=== PATIENT | female | born 2000 | race Caucasian/White ===

== ENCOUNTER 2022-08-26 13:08 | Inpatient (IN) | payer BC, SELFPAY ==
[2022-08-26] VITALS (12 sets, daily range): BP systolic 122–136; BP diastolic 70–96; PULSE 52–89; RESP 12–23; TEMP 36.9–37.2; O2SAT 97–100; BMI 22.6
--- NOTE | ~2022-08-26 | XR_ITS ---
EXAM: XR abdomen NG/feed tube insert DATE: 08/26/2022 17:53 HISTORY: NG tube placement confirmation . COMPARISON: None available. FINDINGS: Clear lung bases. NG tube, tip and side port project over the gastric body. Normal partial ly visualized bowel gas pattern. No organomegaly. No abnormal abdominal calcification. Regional bones and soft tissues normal for age. IMPRESSION: NG tube, in good position. Reviewed, dictated and finalized at location K. IMPRESSION: NG tube, in good position.
--- NOTE | ~2022-08-26 | XR_ITS ---
Supine and upright views of the abdomen Clinical history: Small bowel obstruction COMPARISON: 08/27/2022 Findings: Bowel gas pattern is nonspecific. No evidence for obstruction or free air. No abnormal mass lesion or calcification is seen. Osseous structures are intact. Impression: No significant abnormality is seen. Reviewed, dictated and finalized at [facility]. Impression: No significant abnormality is seen.
--- NOTE | ~2022-08-26 | XR_ITS ---
EXAMINATION: XR abdomen/kub 1V DATE: 08/27/2022 10:16 INDICATION: Small bowel obstruction TECHNIQUE: A supine view of the abdomen on 2 radiographs was obtained. COMPARISON: 08/26/2022 FINDINGS: Nasogastric tube tip in proximal side port in the body of the stomach. Small amount of gas scattered throughout what appears to be primarily colon. No dilated loops of gas-filled bowel. Mild thoracolumb ar dextrocurvature. IMPRESSION: 1. Nasogastric tube in the stomach. No dilated loops of gas-filled bowel to suggest obstruction. Reviewed, dictated and finalized at location B. IMPRESSION: 1. Nasogastric tube in the stomach. No dilated loops of gas-filled bowel to sug gest obstruction.
--- NOTE | ~2022-08-26 | XR_ITS ---
EXAMINATION: XR sm bowel follow through DATE: 08/27/2022 14:44 INDICATION: Small bowel obstruction. TECHNIQUE: Oral contrast was administered, and a time course of radiographs of the abdomen was obtain ed. Fluoroscopy of the small bowel was performed. Fluoroscopy exposure time was 0.1 minutes. The tota l number of images was 7. COMPARISON: CT abdomen and pelvis 08/26/2022 FINDINGS: The nasogastric tube tip is in the stomach. Bowel malrotation is noted. There are multiple dilated lo ops of small bowel. The distal small bowel is decompressed. Transit time from the stomach to proximal colon was approximately 45 minutes. IMPRESSION: 1. Dilated small bowel with prompt passage of contrast to the colon, consistent with partial small araseli wel obstruction. 2. Bowel malrotation. Reviewed, dictated and finalized at location A. IMPRESSION: 1. Dilated small bowel with prompt passage of contrast to the colon, consistent with partial small bowel obstruction. 2. Bowel malrotation.
--- NOTE | ~2022-08-26 | CT_ITS ---
EXAMINATION: CT abdomen pelvis w con DATE: 08/26/2022 16:03 INDICATION: Generalized abdominal pain. Nausea. TECHNIQUE: Computed tomography (CT) of the abdomen and pelvis was performed with 100 mL Omnipaque 350 intravenous contrast. Automated exposure control and iterative reconstruction technique were employe d. The dose-length product was 309.45 mGy-cm. COMPARISON: None. FINDINGS: The visualized portions of the lung bases are clear without pneumonia or pleural effusion. The heart size is normal. No pericardial effusion. The liver, gallbladder, spleen, pancreas, adrenal glands, and kidneys are normal. The colon is decompressed. There are multiple dilated loops of small bowel with transition point in the inferior peritoneum. There are no pathologically enlarged lymph no adelaida. There is physiologic fluid in the pelvis. There is mild lumbar spondylosis. IMPRESSION: 1. Small bowel obstruction. Reviewed, dictated and finalized at location L. IMPRESSION: 1. Small bowel obstruction.
[2022-08-26 15:18] LABS: Appearance Urine Clear (Clear); Bilirubin Urine Negative (Negative); Blood Urine Negative (Negative); Color Urine Yellow (Yellow); Glucose Urine UA Negative (Negative); Ketones Urine 1+ mg/dL (Negative); Leukocyte Esterase Ur Negative LEU/UL (Negative); Nitrate Urine Negative (Negative); Protein Urine Negative (Negative); Specific Grav Ur 1.027 (1.001-1.035); Urobilinogen Urine 0.2 mg/dL (<2.0); pH Urine 6.5 (5.0-9.0)
[2022-08-26 15:35] LABS: Add Urine Microscopic? NO
[2022-08-26 15:47] LABS: Basophils Absolute Auto 0.1 K/mm3 (0.0-0.1); Basophils Percent Auto 0.4 % (0.2-1.2); Eosinophils Percent Auto 0.1 % (0-4.4); Hematocrit 50.3 % (37.0-47.0); Hemoglobin 17.1 g/dL (12.0-15.0); Immature Granulocyte Absolute 0.04 K/mm3 (0.00-0.031); Immature Granulocyte Percent A 0.3 % (0-0.5); Lymphocytes Percent Auto 6.6 % (18.3-44.2); Mean Corpuscular Hemoglobin 29.6 pg (26-34); Mean Corpuscular Volume 87.2 fl (80-100); Monocytes Absolute Auto 0.5 K/mm3 (0.1-0.6); Monocytes Percent Auto 4.5 % (2.6-8.5); Neutrophils Absolute Auto 10.6 K/mm3 (1.3-6.7); Neutrophils Percent Auto 88.1 % (45.5-73.1); Platelet Count Result 217 k/mm3 (150-375); Red Blood Count 5.77 M/mm3 (4.2-5.4); Red Cell Distribution Width 12.5 % (11.5-14.5)
[2022-08-26] MEDS: ONDANSETRON INJ 4 MG/2 ML VIAL IV PUSH ×2 (15:53→21:15)
[2022-08-26] MEDS: FAMOTIDINE 20 MG/2 ML VIAL IV PUSH (15:53)
[2022-08-26 15:57] LABS: Alanine Aminotransferase 22 U/L (6-35); Albumin Level 5.2 g/dL (3.5-5.1); Alkaline Phosphatase 64 U/L (38-126); Anion Gap 12 mmol/L (8-16); Aspartate Amino Transferase 29 U/L (14-36); Blood Urea Nitrogen 11 mg/dL (7-17); Carbon Dioxide 25 mmol/L (22-30); Chloride 102 mmol/L (98-107); Estimated CRCL calculation 100 ml/min; Estimated Glomerular Filt Rate > 60; Glucose 111 mg/dL (65-110); Lipase 113 U/L (23-300); Potassium 3.8 mmol/L (3.4-5.0); Sodium 139 mmol/L (137-145)
[2022-08-26 15:59] LABS: Estimated CRCL calculation 100 ml/min; Estimated Glomerular Filt Rate > 60
--- NOTE | 2022-08-26 16:18 | ED.ABDPAIN ---
HPI - Abdominal Pain General Chief Complaint: Abdominal Pain Stated Complaint: abd pain Time Seen by Provider: 08/26/22 15:03 Source: patient and RN notes reviewed Mode of arrival: ambulatory Limitations: no limitations History of Present Illness HPI narrative: This is a 22 year old female who presents for evaluation of upper abdominal pain with nausea and vomiting. She developed upper abdominal pain since this morning. She described pain that is severe and occurs in waves. She is having trouble thinking because her pain is so severe. She has had 2 episodes of nonbilious emesis. She reports normal bowel movement this morning but she has not had once since. She has not been passing gas. She denies fever or chills. She reports several years ago she had similar pain and she was diagnosed with colitis. She tried taking Tums at onset of her symptoms because she felt like she had reflux but no improvement. She also reports history of intestinal surgery as a child in which her appendix were on the wrong side. She reports her appendix was removed at that time. She Related Data Allergies Allergy/AdvReac Type Severity Reaction Status Date / Time No Known Allergies Allergy Verified 08/26/22 15:49 Review of Systems Constitutional: Constitutional: Denies weakness Cardiovascular: Cardiovascular: Denies syncope, Denies rapid heart rate, Denies irregular heart rhythm, Denies leg edema and Denies dyspnea Respiratory: Respiratory: Denies chest congestion, Denies hemoptysis, Denies excessive phlegm production and Denies dyspnea Gastrointestinal: Gastrointestinal: Reports abdominal pain, Denies hematochezia, Denies diarrhea, Reports nausea and Reports vomiting Genitourinary: Genitourinary: Denies hematuria and Denies dysuria Musculoskeletal: Musculoskeletal: Denies joint swelling, Denies loss of height and Denies muscle weakness Neurologic: Denies syncope, Denies focal weakness and Denies weakness PMFSH Past Medical History Medical History (Updated 08/26/22 @ 17:46 by Jeannine Cassidy MD) Colitis Surgical History Surgical History (Updated 08/26/22 @ 16:36 by Jeannine Cassidy MD) Hx of appendectomy Social History Social History (Updated 08/26/22 @ 16:36 by Jeannine Cassidy MD) Smoking status: Never smoker Exam Const: General: no acute distress and alert Nutritional Appearance: well nourished Orientation/consciousness: patient oriented x3 HENMT: Head: normal to inspection Eyes: EOM: EOMs intact bilaterally Resp: Effort & Inspection: normal respiratory effort Auscultation: clear to auscultation bilaterally Cardio: Rate: regular rate Rhythm: regular rhythm Heart sounds: no murmurs GI: GI Palp: Yes Tenderness to palpation present (GI) (diffuse), Yes Guarding due to palpation present (GI) (voluntary) and No Rigid due to palpation Auscultation: Hypoactive bowel sounds present Skin: General skin exam: normal color Rashes: no rashes Wounds: no wounds Neuro: General: patient oriented x3, moves all extremities and CN's II-XI intact bilaterally Cranial nerves: Yes Nystagmus not present Speech: normal speech Gait exam (Neuro): Normal gait present Extrem: General: normal to inspection Psych: Mental Status: mental status grossly normal Affect: normal affect Attitude: cooperative Course Reevaluation(s) Reevaluation #1: I Discussed with patient that she was found to have SBO on CT and treatment is generally with NGT. She wants to think about having procedure. Date: 08/26/22 Time: 16:37 Consultations Consultation #1: I discussed case with DR. Cali who agrees to admit to service. He agrees with NGT . He states patient can have ice chips. Date: 08/26/22 Time: 17:40 Vital Signs Vital signs: Vital Signs Temperature 98.4 F 08/26/22 13:38 Pulse Rate 78 08/26/22 13:38 Respiratory Rate 16 08/26/22 13:38 Blood Pressure 123/70 08/26/22 13:38 Pulse Oximetry 100 08/26/22 13:38 Oxygen De
[2022-08-26] MEDS: SODIUM CHLORIDE 0.9% IV 1,000 ML 999 ML IV CONT ×2 (16:27→16:28)
--- NOTE | 2022-08-26 16:39 | PC.NURSE ---
patient undecided about NG tube at this time. Provider aware and ok for patient to think about it for a bit and call nurse when she make a decision
[2022-08-26] MEDS: MORPHINE SULFATE (*CRX) 4 MG/ML INJ IV PUSH (17:35)
--- NOTE | 2022-08-26 18:51 | ADMGEN ---
This patient, Ashley Mata, was admitted to Medical Room 245-. Patient/family oriented to hospital policies and general routines including ID bracelet, bed and alarms, visiting hours, pain management, procedures, bathroom and other care routines, personal items, smoking policy, room service/diet, and visiting hours. Information on how to activate the Rapid Response Team has been discussed. Patient/Family are encouraged to report perceived risks to care and to ask questions if they do not understand what they are told or what they should do.
[2022-08-26] MEDS: SODIUM CHLORIDE 0.9% IV 1,000 ML 125 ML IV CONT (20:29)
[2022-08-27] MEDS: ONDANSETRON INJ 4 MG/2 ML VIAL IV PUSH ×2 (01:19→05:40)
[2022-08-27] MEDS: MORPHINE SULFATE (*CRX) 4 MG/ML INJ IV PUSH ×2 (01:20→05:41)
[2022-08-27] MEDS: SODIUM CHLORIDE 0.9% IV 1,000 ML 125 ML IV CONT (04:27)
[2022-08-27 04:36] VITALS: BP 126/78; PULSE 50; RESP 18; TEMP 36.3; O2SAT 100
[2022-08-27 05:32] LABS: Basophils Absolute Auto 0.1 K/mm3 (0.0-0.1); Basophils Percent Auto 0.5 % (0.2-1.2); Eosinophils Percent Auto 0.2 % (0-4.4); Hematocrit 45.5 % (37.0-47.0); Hemoglobin 15.1 g/dL (12.0-15.0); Immature Granulocyte Absolute 0.03 K/mm3 (0.00-0.031); Immature Granulocyte Percent A 0.3 % (0-0.5); Lymphocytes Absolute Auto 1.54 K/mm3 (0.9-3.2); Mean Corpuscular HGB Conc 33.2 g/dl (32-36); Mean Corpuscular Hemoglobin 29.4 pg (26-34); Mean Corpuscular Volume 88.5 fl (80-100); Mean Platelet Volume 10.6 fl (7.4-10.4); Monocytes Absolute Auto 0.9 K/mm3 (0.1-0.6); Monocytes Percent Auto 8.3 % (2.6-8.5); Neutrophils Absolute Auto 7.8 K/mm3 (1.3-6.7); Neutrophils Percent Auto 75.7 % (45.5-73.1); Platelet Count Result 205 k/mm3 (150-375); Red Blood Count 5.14 M/mm3 (4.2-5.4); Red Cell Distribution Width 12.5 % (11.5-14.5); White Blood Count 10.2 K/mm3 (4.5-10.0)
[2022-08-27 05:44] LABS: Alanine Aminotransferase 16 U/L (6-35); Alkaline Phosphatase 50 U/L (38-126); Anion Gap 7 mmol/L (8-16); Aspartate Amino Transferase 23 U/L (14-36); Bilirubin,Total 1.1 mg/dL (0.2-1.3); Blood Urea Nitrogen 7 mg/dL (7-17); Calcium 8.4 mg/dL (8.4-10.2); Carbon Dioxide 25 mmol/L (22-30); Chloride 108 mmol/L (98-107); Estimated CRCL calculation 100 ml/min; Estimated Glomerular Filt Rate > 60; Glucose 101 mg/dL (65-110); Potassium 3.8 mmol/L (3.4-5.0); Sodium 140 mmol/L (137-145)
--- NOTE | 2022-08-27 10:18 | PM.IMHP ---
H&P: HPI History of Present Illness Date/Time: 08/27/22 10:18 Chief Complaint: Abdominal pain Narrative: This is a 22-year-old who presented to the ER with complaints of abdominal pain and vomiting x 1 day. She woke up yesterday not feeling well. She reports having cramping abdominal pain going across her entire upper abdomen. She developed nausea, vomiting x 2, and bloating. She felt her abdomen was distended. She had a history of colitis in 2017 and felt her abdominal pain was similar, therefore she went to urgent care to be evaluated yesterday. They directed her to the ER. Labs in the ER showed a white blood cell count of 12,000. CT scan of the abdomen and pelvis showed a small bowel obstruction with transition point in the inferior peritoneum. She had an NG tube placed and started on IV fluids. She is seen this morning with her mother at the bedside. 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 She was also treated with endoscopy at that time. Since then, she denies any issues with a bowel obstruction or any additional abdominal surgeries. She was also treated for colitis in 2017, but has not had additional endoscopies. Her abdominal pain, bloating, and nausea has significantly improved. It appears she has had about 500 cc out of her NG since it was placed in the ER. She denies flatus this morning. Her last bowel movement was yesterday around 8:00 am and normal for her. Review of Systems Review of Systems: All systems reviewed & are unremarkable except as noted in HPI and below Constitutional: Constitutional: Reports no additional constitutional complaints, Denies chills, Denies fatigue and Denies fever(s) Eyes: Eyes: Reports no additional eye complaints ENT: Reports system reviewed and no additional complaints, except as documented and Denies dizziness Cardiovascular: Cardiovascular: Reports no additional cardiovascular complaints, Denies chest pain and Denies leg edema Respiratory: Respiratory: Reports no additional respiratory complaints, Denies cough and Denies dyspnea Gastrointestinal: Gastrointestinal: Reports as per HPI, Reports no additional gastrointestinal complaints, Reports abdominal pain, Reports belching, Denies melena, Reports bloating, Denies hematochezia, Denies coffee ground emesis, Denies constipation, Denies diarrhea, Denies loose stools, Reports nausea, Reports vomiting and Denies hematemesis Genitourinary: Genitourinary: Reports no additional female genitourinary complaints and Denies dysuria Musculoskeletal: Musculoskeletal: Reports no additional musculoskeletal complaints, Denies abnormal gait and Denies joint swelling Integumentary/Breasts: Skin/Breast: Reports system reviewed and no additional complaints, except as docu Neurologic: Reports system reviewed and no additional complaints, except as documented, Denies headache(s), Denies focal weakness, Denies numbness and Denies tingling PMFSH Past Medical History Medical History Colitis 2017 Surgical History Surgical History History of laparotomy Exploratory laparotomy as 1 day old due to intestinal blockage with incidental appendectomy due to abnormal anatomy of appendix History of surgery of head Hx Sagittal synostosis as an Hx of appendectomy 1 day old Family History Family History Mother Hypertension Father Malignant neoplasm of prostate Social History Social History Smoking status: Never smoker Alcohol intake: current Alcohol use details: Occasional, social use Substance use: never Substance use type: does not use Lack of Transportation: No Lack of Food: Never True Current Housing: I Have Housing Co
[2022-08-27] MEDS: ENOXAPARIN 40 MG/0.4 ML SYRINGE SUB-Q (10:47)
[2022-08-27 14:00] VITALS: BP 125/72; PULSE 53; RESP 18; TEMP 36.8; O2SAT 100
[2022-08-27] MEDS: KETOROLAC 30 MG/ML VIAL (*BKC) IV PUSH (17:12)
[2022-08-27] MEDS: FAMOTIDINE 20 MG/2 ML VIAL IV PUSH (19:58)
[2022-08-27 20:21] VITALS: BP 121/76; PULSE 55; RESP 18; TEMP 36.8; O2SAT 100
[2022-08-27] MEDS: ACETAMINOPHEN 325 MG TABLET 650 MG PO (21:49)
[2022-08-28] MEDS: ONDANSETRON INJ 4 MG/2 ML VIAL IV PUSH (04:46)
[2022-08-28 05:18] LABS: Hematocrit 39.1 % (37.0-47.0); Mean Corpuscular HGB Conc 33.2 g/dl (32-36); Mean Corpuscular Hemoglobin 29.2 pg (26-34); Mean Corpuscular Volume 87.9 fl (80-100); Mean Platelet Volume 10.2 fl (7.4-10.4); Platelet Count Result 157 k/mm3 (150-375); Red Blood Count 4.45 M/mm3 (4.2-5.4); Red Cell Distribution Width 12.7 % (11.5-14.5); White Blood Count 7.3 K/mm3 (4.5-10.0)
[2022-08-28 05:30] LABS: Anion Gap 3 mmol/L (8-16); Blood Urea Nitrogen 4 mg/dL (7-17); Calcium 7.8 mg/dL (8.4-10.2); Carbon Dioxide 27 mmol/L (22-30); Chloride 107 mmol/L (98-107); Estimated CRCL calculation 100 ml/min; Estimated Glomerular Filt Rate > 60; Glucose 103 mg/dL (65-110); Potassium 3.6 mmol/L (3.4-5.0); Sodium 137 mmol/L (137-145)
[2022-08-28 05:42] VITALS: BP 119/67; PULSE 94; RESP 18; TEMP 36.3; O2SAT 100
[2022-08-28] MEDS: ENOXAPARIN 40 MG/0.4 ML SYRINGE SUB-Q (08:14)
[2022-08-28] MEDS: FAMOTIDINE 20 MG/2 ML VIAL IV PUSH ×2 (08:14→20:48)
[2022-08-28] MEDS: KETOROLAC 30 MG/ML VIAL (*BKC) IV PUSH (08:21)
[2022-08-28 08:30] VITALS: O2SAT 98
--- NOTE | 2022-08-28 10:37 | PM.PNGS ---
Progress Note: A&P Assessment and Plan (1) Small bowel obstruction: Code(s): K56.609 - Unspecified intestinal obstruction, unspecified as to partial versus complete obstruction Status: Acute Assessment and Plan: Clinically improving. SBFT suggested partial SBO with dilated small bowel with prompt passage of contrast to the colon, and bowel malrotation. Abdominal x-ray this morning showed normal bowel gas pattern. Bowels are moving, but she had some nausea and bloating overnight. Will continue clear liquids today. Encouraged walking the halls. Will re-evaluate again tomorrow and hopefully advance diet if she continues to improve. Plan I have discussed the patient's case and plan of care with Dr. Cali. Subjective Subjective Date/Time Seen: 08/28/22 10:37 Patient reports: feels better, pain is less, flatus, bowel movement (x2 this morning) and nausea Interval history: Patient seen this morning. NG tube removed yesterday. Currently tolerating clear liquids, although reports some nausea overnight. Her nausea improved when sitting upright. She reports having some abdominal soreness in the right lower quadrant, but significant improvement in her pain. Still feels slightly bloated, but again overall improved. No other complaints at this time. Exam Const: General: comfortable and no acute distress Orientation/consciousness: patient oriented x3 GI: Inspection: non-distended GI Palp: Yes Soft to palpation, Yes Tenderness to palpation present (GI) (very mild tenderness in RLQ), No Guarding due to palpation present (GI) and No Rebound tenderness present Auscultation: normal bowel sounds Objective Data Vital Signs Vital Signs: Vital Signs - 24 hr 08/27/22 14:00 08/27/22 20:21 08/28/22 05:42 Temperature 98.3 F 98.3 F 97.3 F L Pulse Rate 53 L 55 L 94 Respiratory Rate 18 18 18 Blood Pressure 125/72 121/76 119/67 Pulse Oximetry 100 100 100 Oxygen Delivery 08/28/22 08:00 08/28/22 08:30 Temperature Pulse Rate Respiratory Rate Blood Pressure Pulse Oximetry 98 Oxygen Delivery Room Air Room Air Intake/Output Intake/Output: Intake & Output 08/25/22 08/26/22 08/27/22 08/28/22 23:59 23:59 23:59 23:59 Intake Total 1999 2665 300 Output Total 250 Balance 1999 2415 300 Meds/Results Medications: Active Medications Generic Name Dose Route Start Last Admin Trade Name Freq PRN Reason Stop Dose Admin Acetaminophen 650 mg 08/27/22 21:26 08/27/22 21:49 Acetaminophen 325 Mg Tablet PO 650 mg Q6H PRN Administration Mild Pain (1-3) or Fever Hydrocodone Bitart/Acetaminophen 1 tab 08/27/22 21:27 Hydrocodone/Acetaminophen (*Crx) 5-325 Mg Tablet PO Q6H PRN Pain Rated 4-6 Enoxaparin Sodium 40 mg 08/28/22 09:00 08/28/22 08:14 Enoxaparin 40 Mg/0.4 Ml Syringe SUB-Q 40 mg DAILY FREDIS Administration Famotidine 20 mg 08/27/22 21:00 08/28/22 08:14 Famotidine 20 Mg/2 Ml Vial IV PUSH 20 mg Q12HR FREDIS Administration Potassium Chloride 30 meq/ 1,015 mls @ 100 mls/hr 08/27/22 10:30 08/27/22 21:50 Dextrose/Sodium Chloride IV CONT 100 mls/hr .Q10H9M FREDIS Administration Ketorolac Tromethamine 30 mg 08/27/22 21:25 08/28/22 08:21 Ketorolac 30 Mg/Ml Vial (*Bkc) IV PUSH 30 mg Q6H PRN Administration Headache Morphine Sulfate 4 mg 08/26/22 17:38 08/27/22 05:41 Morphine Sulfate (*Crx) 4 Mg/Ml Inj IV PUSH 4 mg Q2H PRN Administration Pain Rated 7-10 Morphine Sulfate 2 mg 08/27/22 10:34 Morphine Sulfate (*Crx) 2 Mg/Ml Inj IV PUSH Q2H PRN Pain Rated 4-6 Ondansetron HCl 4 mg 08/26/22 17:38 08/28/22 04:46 Ondansetron Inj 4 Mg/2 Ml Vial IV PUSH 4 mg Q4H PRN Administration Nausea Radiology Results: ITS Impressions Abdomen/Pelvis CT 08/26/22 16:06 IMPRESSION: 1. Small bowel obstruction. ADDENDUM: 08/27/22 7045 Bowel malrotation is noted. Small Bowel X-Ray 08/27/22 14:5
[2022-08-28 14:30] VITALS: BP 113/71; PULSE 63; RESP 14; TEMP 37; O2SAT 100
[2022-08-28 19:46] VITALS: BP 127/71; PULSE 53; RESP 18; TEMP 36.7; O2SAT 100
[2022-08-28 20:00] VITALS: PULSE 53; RESP 18; O2SAT 100
[2022-08-29 05:43] VITALS: BP 108/66; PULSE 54; RESP 18; TEMP 36.4; O2SAT 100
[2022-08-29 06:05] LABS: Anion Gap 4 mmol/L (8-16); Blood Urea Nitrogen 3 mg/dL (7-17); Calcium 8.1 mg/dL (8.4-10.2); Carbon Dioxide 26 mmol/L (22-30); Chloride 109 mmol/L (98-107); Estimated CRCL calculation 100 ml/min; Estimated Glomerular Filt Rate > 60; Glucose 99 mg/dL (65-110); Sodium 139 mmol/L (137-145)
[2022-08-29] MEDS: ENOXAPARIN 40 MG/0.4 ML SYRINGE SUB-Q (08:09)
[2022-08-29] MEDS: FAMOTIDINE 20 MG/2 ML VIAL IV PUSH (08:09)
[2022-08-29 09:16] VITALS: O2SAT 99
[2022-08-29 14:40] VITALS: BP 120/74; PULSE 61; RESP 14; TEMP 36.6; O2SAT 100
--- NOTE | 2022-08-29 19:13 | P.DS_ITS ---
DS: Admitting Diagnosis Discharge Date 08/29/2022 Admitting Diagnosis * Small bowel obstruction * Intestinal malrotation DS: Discharge Diagnosis Discharge Diagnosis (1) Small bowel obstruction: Code(s): K56.609 - Unspecified intestinal obstruction, unspecified as to partial versus complete obstruction Status: Acute (2) Intestinal malrotation: Code(s): Q43.3 - Congenital malformations of intestinal fixation Status: Chronic Assessment and Plan: History of duodenal obstruction and surgery at the time of her . DS: Summary Hospital Course Hospital Course: Patient came to the emergency room on 08/26/2022. She had a 1 day history of upper abdominal pain nausea and vomiting. She was noted to have abdominal tenderness [place] [address] scan of the abdomen and pelvis showed intestinal malrotation as well as small-bowel obstruction. She had a nasogastric tube placed and was given fluids and analgesics. Her pain was pretty much resolved by the day after her admission. She underwent Gastrografin upper GI small-bowel follow-through. This showed rapid transit of the contrast through into the colon in 45 minutes. She did still have some dilated proximal small bowel. Her nasogastric tube was removed but she was kept on clear liquids. She was on liquids most of the day on 08/28 and then advanced to low- fiber diet on 08/29/2022. She still had a little bit of right lower quadrant abdominal pain but admits she is on her menses and tends to have constipation an d some abdominal pain at that time. She is eating with no evidence of nausea or vomiting. Her abdominal exam is negative other than some mild right suprapubic tenderness. White blood cell count was normal yesterday and she is comfortable being discharged this evening. Status at Discharge Functional status at discharge: independent ambulation Overall status at discharge: patient is progressing back to baseline Time Spent with Patient Time attestation: Total time spent providing and/or coordinating discharge services: Time spent: Less than 30 minutes DS: Data Data Completed and Pending Labs on day of discharge: Labs from last 24 hours 08/29/22 05:14 Sodium 139 Potassium 4.0 Chloride 109 H Carbon Dioxide 26 Anion Gap 4 L BUN 3 L Creatinine 0.70 Estim Creat Clear Calc 100 Estimated GFR > 60 Glucose 99 Calcium 8.1 L Discharge Plan Discharge Attending physician on discharge: Ubaldo Cali Discharging Clinician: Ubaldo Cali Anticipated Discharge Date/Time: 08/29/22 19:21 Patient Disposition: Home, Self-Care Activity: as tolerated Diet: as tolerated and regular Discharge Instructions: * Hold off on eating large meals for couple of days. * Call for any recurrent abdominal pain nausea or vomiting. * See Dr. Cali in the office in 7-10 days for follow-up. Patient Instructions: Antibiotic Form Stand Alone Forms: General Discharge Information Follow-up/Referrals: Ubaldo Cali MD [Physician] - 1 Week (Call Dr. Atkins office for appointment) Date of admission: 08/27/22 13:12 Primary Care Provider: PHYSICIAN NOT ON STAFF,NONSTAFF Admitting Provider: Ubaldo Cali Attending physician on admission: Ubaldo Cali Condition: Improved
== END 2022-08-29 20:30 | disposition home or self-care (01) | DRG 247 ==
LOC: ANHED 17:46 → ANH2MED 18:23
PROVIDERS: Emergency Medicine; Nurse Practitioner Family; Admitting Provider Surgery; Emergency Provider General Practice; Visit Provider Surgery
DX: K56.609 Unspecified intestinal obstruction, unspecified as to partial versus complete obstruction (principal); Q43.3 Congenital malformations of intestinal fixation; Z90.49 Acquired absence of other specified parts of digestive tract
CPT/HCPCS: 36415; 74018; 74177; 74250; 80048; 80053; 81003; 81025; 83690; 85025; 85027; 96361; 96365; 96366; 96372; 96374; 96375; 96376; 99285; A9270; G0378; G0379; J0131; J1650; J1885; J2270; J2405; J3480; J7030; Q9967

== ENCOUNTER 2023-03-06 09:05 | Emergency (ER) | payer BC, SELFPAY ==
--- NOTE | ~2023-03-06 | XR_ITS ---
EXAMINATION: XR abdomen obstructive series DATE: 03/06/2023 10:04 INDICATION: Upper abdominal pain TECHNIQUE: Supine and upright views of the abdomen. FINDINGS: 08/28/2022 The visualized lung parenchyma is normal.. There is a nonobstructive bowel gas pattern. Gas and stool are seen throughout the colon to the level of the rectum. There is no free air. IMPRESSION: 1. No acute abdominal abnormality. Reviewed, dictated and finalized at location B. NT EDUCATOR
[2023-03-06 09:11] VITALS: BP 124/74; PULSE 65; RESP 18; TEMP 36.7; O2SAT 100
--- NOTE | 2023-03-06 09:43 | ED.ABDPAIN ---
HPI - Abdominal Pain General Chief Complaint: Abdominal Pain Stated Complaint: abdominal pain Time Seen by Provider: 03/06/23 09:28 History of Present Illness HPI narrative: 23 y/o female presents with epigastric abdominal pain since last night. patient denies n/v, fever, diarrhea/CN, or urinary symptoms. patient is currently on menstrual cycle. patient has a hx of bowel obstruction in July 2022 with similar symptoms. patient denies any other complaints. Onset (ago): hour(s) (12) Location: epigastric Associated symptoms: denies other symptoms Related Data Date of Last Menstrual Period: 03/06/23 Allergies Allergy/AdvReac Type Severity Reaction Status Date / Time No Known Allergies Allergy Verified 03/06/23 10:17 Review of Systems Review of Systems: All systems reviewed & are unremarkable except as noted in HPI and below Gastrointestinal: Gastrointestinal: Reports abdominal pain PMFSH Past Medical History Medical History Colitis 2017 Surgical History Surgical History History of laparotomy Exploratory laparotomy as 1 day old due to intestinal blockage with incidental appendectomy due to abnormal anatomy of appendix History of surgery of head Hx Sagittal synostosis as an Hx of appendectomy 1 day old Family History Family History Mother Hypertension Father Malignant neoplasm of prostate Social History Social History Smoking status: Never smoker Alcohol intake: current Alcohol use details: Occasional, social use Substance use: never Substance use type: does not use Lack of Transportation: No Lack of Food: Never True Current Housing: I Have Housing Concerned About Future Housing: No Difficulty Paying Gas/Electric Bills: No Difficulty Paying for Meds: No Currently Unemployed: No Education: Bachelor's Degree Difficulty w/ Childcare or Family Care: No Spiritual care concerns: No Exam Const: General: healthy appearing, no acute distress and alert Nutritional Appearance: well nourished Orientation/consciousness: patient oriented x3 Limitations: no limitations HENMT: Head: normal to inspection Ears: external ears normal Mouth: Yes Normal oral and palatal mucosa present Eyes: Conjunctivae: conjunctivae normal EOM: EOMs intact bilaterally Neck: Neck: normal visual inspection Chest: Chest palpation & inspection: normal inspection of the chest Resp: Effort & Inspection: normal respiratory effort Cardio: Rate: regular rate GI: GI Palp: Yes Tenderness to palpation present (GI) (epigastric) Auscultation: normal bowel sounds Back/Spine/Pelvis: Back: no CVA tenderness Skin: General skin exam: normal color Neuro: General: patient oriented x3 Extrem: General: normal to inspection Psych: Mental Status: mental status grossly normal Course Course Emergency Course: XR and labs were negative. patient had relief of symtoms after GI cocktail. will treat with omeprazole for gastritis Reevaluation(s) Reevaluation #1: patient feeling better after GI cocktail Date: 03/06/23 Time: 10:44 Vital Signs Vital signs: Vital Signs Temperature 36.7 C 03/06/23 09:11 Pulse Rate 65 03/06/23 09:11 Respiratory Rate 18 03/06/23 09:11 Blood Pressure 124/74 03/06/23 09:11 Pulse Oximetry 100 03/06/23 09:11 Oxygen Delivery Room Air 03/06/23 09:11 Temperature 36.7 C 03/06/23 09:11 Pulse Rate 65 03/06/23 09:11 Respiratory Rate 18 03/06/23 09:11 Blood Pressure 124/74 03/06/23 09:11 Pulse Oximetry 100 03/06/23 09:11 Oxygen Delivery Room Air 03/06/23 09:11 MDM - Abdominal Pain MDM Narrative Medical decision making narrative: 1023: obstruction xr was negative. will order GI cocktail to see if it helps with symp
[2023-03-06] MEDS: BELLADONNA ALK/PHENOB ELIX 10 ML, MAG HYDROX/ALUMINUM HYD/SIMETH 30 ML, LIDOCAINE HCL 2... PO (10:17)
[2023-03-06 10:19] LABS: Basophils Percent Auto 0.8 % (0.2-1.2); Eosinophils Absolute Auto 0.1 K/mm3 (0-0.3); Eosinophils Percent Auto 1.4 % (0-4.4); Hematocrit 45.3 % (37.0-47.0); Hemoglobin 15.2 g/dL (12.0-15.0); Immature Granulocyte Absolute 0.02 K/mm3 (0.00-0.031); Immature Granulocyte Percent A 0.4 % (0-0.5); Lymphocytes Absolute Auto 1.19 K/mm3 (0.9-3.2); Lymphocytes Percent Auto 23.2 % (18.3-44.2); Mean Corpuscular HGB Conc 33.6 g/dl (32-36); Mean Corpuscular Hemoglobin 29.4 pg (26-34); Mean Corpuscular Volume 87.6 fl (80-100); Mean Platelet Volume 10.6 fl (7.4-10.4); Monocytes Absolute Auto 0.4 K/mm3 (0.1-0.6); Monocytes Percent Auto 8.4 % (2.6-8.5); Neutrophils Absolute Auto 3.4 K/mm3 (1.3-6.7); Neutrophils Percent Auto 65.8 % (45.5-73.1); Platelet Count Result 189 k/mm3 (150-375); Red Blood Count 5.17 M/mm3 (4.2-5.4); Red Cell Distribution Width 12.9 % (11.5-14.5); White Blood Count 5.1 K/mm3 (4.5-10.0)
[2023-03-06 10:22] LABS: Appearance Urine Cloudy (Clear); Bacteria Urine None Seen /hpf; Bilirubin Urine Negative (Negative); Blood Urine Negative (Negative); Color Urine Yellow (Yellow); Glucose Urine UA Negative (Negative); Ketones Urine Negative (Negative); Leukocyte Esterase Ur Negative LEU/UL (Negative); Nitrate Urine Negative (Negative); Non Pathogenic Casts 0-2; Protein Urine Negative (Negative); RBC Urine 0-2 /hpf (0-2); Specific Grav Ur 1.019 (1.001-1.035); Squamous Epithelial Cell Urine None seen /hpf (Few); Urobilinogen Urine 0.2 mg/dL (<2.0); WBC Urine 0-5 /hpf
[2023-03-06 10:23] LABS: Add Urine Microscopic? YES
[2023-03-06 10:28] LABS: Alanine Aminotransferase 14 U/L (6-35); Albumin Level 4.4 g/dL (3.5-5.1); Alkaline Phosphatase 53 U/L (38-126); Anion Gap 6 mmol/L (8-16); Aspartate Amino Transferase 23 U/L (14-36); Bilirubin,Total 0.9 mg/dL (0.2-1.3); Blood Urea Nitrogen 9 mg/dL (7-17); Calcium 9.3 mg/dL (8.4-10.2); Carbon Dioxide 24 mmol/L (22-30); Chloride 106 mmol/L (98-107); Estimated CRCL calculation 99 ml/min; Estimated Glomerular Filt Rate > 60; Glucose 95 mg/dL (65-110); Lipase 112 U/L (23-300); Potassium 3.9 mmol/L (3.4-5.0); Sodium 136 mmol/L (137-145)
[2023-03-06 11:11] VITALS: BP 110/82; PULSE 65; RESP 16; O2SAT 100
== END 2023-03-06 11:14 | disposition home or self-care (01) ==
PROVIDERS: Emergency Provider Nurse Practitioner Family
DX: K29.70 Gastritis, unspecified, without bleeding (principal)
CPT/HCPCS: 36415; 74019; 80053; 81001; 81025; 83690; 85025; 99283; A9270

== ENCOUNTER 2023-09-25 19:55 | Emergency (ER) | payer MEDICAID, SELFPAY ==
--- NOTE | ~2023-09-25 | CT_ITS ---
CTA chest PE abdomen pel Ordering provider: Pérez Farr MD History: . right side chest pain, eval pe, abdominal pain . Comparison: None. Technique: CT angiogram chest was performed following timed intravenous injection of contrast. Thin s lice axial images and reformatted coronal images were obtained. Three dimensional reformatted images of the chest were also obtained using a [employer] workstation. Also, CT of the abdomen and pelvis was pe rformed with IV contrast. . Automated exposure control and iterative reconstruction technique were e mployed. The dose-length product was 384.38 mGy-cm. 100 mL Omnipaque 350 was given IV. FINDINGS: CHEST: --PULMONARY ARTERIES: No pulmonary embolus. --VISUALIZED THORACIC INLET: Normal. --MEDIASTINUM: Aorta/coronary arteries: The thoracic aorta is normal. Heart/other: The heart is not enlarged. Lymph nodes: No mediastinal or hilar adenopathy. --LUNGS: No pulmonary nodules or masses. No infiltrates or effusions. No pneumothorax. --MUSCULOSKELETAL: Bones: Normal Superficial soft tissues: The superficial soft tissues are normal. ABDOMEN/PELVIS: --MUSCULOSKELETAL: Superficial soft tissues: The superficial soft tissues are normal. Bones: Normal. --UPPER ABDOMINAL ORGANS: Liver: Normal. Gallbladder: Not well demonstrated Spleen: Normal. Stomach/duodenum: Normal. Pancreas: Normal. Adrenals: Normal. Kidneys: Normal. --PELVIC ORGANS: The bladder is normal. No bladder stones. --BOWEL AND MESENTERY: Colon: The colon is seen on the left side with no definite large bowel loops seen on the right side. The appendix is not demonstrated. Small Bowel: Normal. No obstruction. Peritoneum/mesentery: No free air or free fluid. No mesenteric lymphadenopathy. --RETROPERITONEUM: Mild atheromatous disease of the abdominal aorta. No retroperitoneal lymphadenop athy. IMPRESSION: CHEST: 1. No pulmonary embolism. No evidence of dissection. ABDOMEN/PELVIS: 1. No evidence of obstruction or perforation. No diverticulitis. The colon is seen on the left side. Further evaluation advised. No definite acute abdominal process. Reviewed, dictated and finalized at location A.
--- NOTE | ~2023-09-25 | XR_ITS ---
EXAMINATION: XR chest 2V DATE: 09/25/2023 20:33 INDICATION: Right chest pain. TECHNIQUE: Frontal and lateral views of the chest were obtained. COMPARISON: CT abdomen and pelvis 08/26/2022 FINDINGS: There is no pneumonia, pleural effusion, or pneumothorax. The heart size is normal. IMPRESSION: 1. No acute cardiopulmonary disease. Reviewed, dictated and finalized at location E.
--- NOTE | 2023-09-25 19:59 | ECG_ITS ---
Test Date: 2023-09-25 20:02:58 Measurements Intervals [place] Rate: 56 P: 47 SC: 129 QRS: 63 QRSD: 98 T: 56 QT: 410 QTc: 397 Interpretive Statements SINUS BRADYCARDIA WITH SINUS ARRHYTHMIA No previous ECG available for comparison Electronically Signed On 09-26-2023 11:10:37 CDT by Elfego Bob M.D.
[2023-09-25 20:24] VITALS: BP 106/66; PULSE 57; RESP 15; TEMP 36.8; O2SAT 100
[2023-09-25 20:37] LABS: Alanine Aminotransferase 21 U/L (6-35); Albumin Level 4.8 g/dL (3.5-5.1); Alkaline Phosphatase 49 U/L (38-126); Anion Gap 10 mmol/L (4-12); Aspartate Amino Transferase 28 U/L (14-36); Bilirubin,Total 0.8 mg/dL (0.2-1.3); Blood Urea Nitrogen 12 mg/dL (7-17); Calcium 9.3 mg/dL (8.4-10.2); Carbon Dioxide 23 mmol/L (22-30); Chloride 108 mmol/L (98-107); Estimated CRCL calculation 99 ml/min; Estimated Glomerular Filt Rate > 60; Glucose 100 mg/dL (65-110); Lipase 186 U/L (23-300); Potassium 3.9 mmol/L (3.4-5.0); Sodium 141 mmol/L (137-145)
[2023-09-25 20:41] LABS: INR 1.2
[2023-09-25 20:42] LABS: Partial Thromboplastin Time 29.4 Seconds (22.3-36.8)
[2023-09-25 20:48] LABS: Troponin I < 0.012 ng/mL (0.000-0.034)
[2023-09-25 21:49] VITALS: BP 123/91; PULSE 73; RESP 13; O2SAT 100
[2023-09-25 22:05] VITALS: BP 123/91; PULSE 62; RESP 17; O2SAT 99
[2023-09-25] MEDS: ASPIRIN 81 MG CHEWABLE TABLET 324 MG PO (22:05)
[2023-09-25 22:06] LABS: Basophils Absolute Auto 0.1 K/mm3 (0.0-0.1); Basophils Percent Auto 0.7 % (0.2-1.2); Eosinophils Absolute Auto 0.1 K/mm3 (0-0.3); Eosinophils Percent Auto 0.9 % (0-4.4); Hematocrit 42.9 % (37.0-47.0); Hemoglobin 14.6 g/dL (12.0-15.0); Immature Granulocyte Absolute 0.01 K/mm3 (0.00-0.031); Immature Granulocyte Percent A 0.1 % (0-0.5); Lymphocytes Absolute Auto 1.53 K/mm3 (0.9-3.2); Lymphocytes Percent Auto 17.2 % (18.3-44.2); Mean Corpuscular Hemoglobin 29.7 pg (26-34); Mean Corpuscular Volume 87.4 fl (80-100); Mean Platelet Volume 10.8 fl (7.4-10.4); Monocytes Absolute Auto 0.8 K/mm3 (0.1-0.6); Monocytes Percent Auto 9.1 % (2.6-8.5); Neutrophils Absolute Auto 6.4 K/mm3 (1.3-6.7); Platelet Count Result 165 k/mm3 (150-375); Red Blood Count 4.91 M/mm3 (4.2-5.4); Red Cell Distribution Width 12.7 % (11.5-14.5); White Blood Count 8.9 K/mm3 (4.5-10.0)
[2023-09-25 22:07] VITALS: PULSE 62; O2SAT 100
--- NOTE | 2023-09-25 22:59 | ECG_ITS ---
Test Date: 2023-09-25 21:47:18 Measurements Intervals [place] Rate: 54 P: 49 SC: 117 QRS: 73 QRSD: 97 T: 62 QT: 417 QTc: 398 Interpretive Statements SINUS BRADYCARDIA WITH SHORT SC INTERVAL Compared to ECG 09/25/2023 20:02:58 Short SC interval now present NO CHANGE SINCE PREVIOUS ECG Electronically Signed On 09-26-2023 11:19:42 CDT by Elfego Bob M.D.
--- NOTE | 2023-09-25 23:10 | ED.GENADULT ---
HPI - General Adult General Chief complaint: Chest Pain Stated complaint: chest pain Time Seen by Provider: 09/25/23 21:35 History of Present Illness HPI narrative: Patient 23-year-old female who presents emergency department with chief complaint of chest pain. Patient reports that for last 3-4 days having discomfort in the right side of her chest. Patient reports that it is worse whenever she takes a deep breath. The patient does report that she has history of her intestines being abnormally rotated Related Data Allergies Allergy/AdvReac Type Severity Reaction Status Date / Time No Known Allergies Allergy Verified 03/06/23 10:17 Review of Systems Review of Systems: A 10 system review of systems was completed on the patient and is negative except for what is stated in the HPI. Nursing and ancillary documentation was reviewed. PMFSH Past Medical History Medical History Colitis 2017 Surgical History Surgical History History of laparotomy Exploratory laparotomy as 1 day old due to intestinal blockage with incidental appendectomy due to abnormal anatomy of appendix History of surgery of head Hx Sagittal synostosis as an infant Hx of appendectomy 1 day old Family History Family History Mother Hypertension Father Malignant neoplasm of prostate Social History Social History Smoking status: Never smoker Alcohol intake: current Alcohol use details: Occasional, social use Substance use: never Substance use type: does not use Lack of Transportation: No Lack of Food: Never True Current Housing: I Have Housing Concerned About Future Housing: No Difficulty Paying Gas/Electric Bills: No Difficulty Paying for Meds: No Currently Unemployed: No Education: Bachelor's Degree Difficulty w/ Childcare or Family Care: No Spiritual care concerns: No Exam Narrative: GENERAL: Well-appearing, well-nourished, and in no acute distress. HEAD: Normocephalic, atraumatic. EYES: PERRLA and EOMI. ENT: Nares clear, no rhinorrhea or epistaxis. Mucous membranes moist. NECK: Supple. CHEST: Clear to auscultation. No respiratory distress. Chest wall is tender to palpation the right sternal border HEART: Regular rate and rhythm. No murmur heard. Normal peripheral pulses. ABDOMEN: Soft, diffuse mild tenderness, nondistended, normal active bowel sounds. EXTREMITIES: Normal range of motion. No edema. SKIN: Warm, dry, no rash. NEURO: No focal deficits. Alert and oriented x3. PSYCH: Normal mood and affect. Course Vital Signs Vital signs: Vital Signs Temperature 36.8 C 09/25/23 20:24 Pulse Rate 57 L 09/25/23 20:24 Respiratory Rate 15 09/25/23 20:24 Blood Pressure 106/66 09/25/23 20:24 Pulse Oximetry 100 09/25/23 20:24 Temperature 36.8 C 09/25/23 20:24 Pulse Rate 62 09/25/23 22:07 Respiratory Rate 17 09/25/23 22:05 Blood Pressure 123/91 H 09/25/23 22:05 Pulse Oximetry 100 09/25/23 22:07 Oxygen Delivery Room Air 09/25/23 22:07 Medical Decision Making MDM Narrative Medical decision making narrative: Differential diagnosis includes ACS, chest wall pain, costochondritis, pulmonary embolism, Laboratory studies were obtained on the patient which showed normal CBC normal CMP troponin was negative coags were normal lipase was normal EKG showed normal sinus rhythm rate of [address] elevation or ST depression Given her history of malrotation a CTA chest was obtained that also included the abdomen pelvis since she had some tenderness on her abdominal exam FINDINGS: CHEST: --PULMONARY ARTERIES: No pulmonary embolus. --VISUALIZED THORACIC INLET: Normal. --MEDIASTINUM: Aorta/coronary arteries: The
[2023-09-25 23:15] VITALS: BP 122/78; PULSE 56; RESP 15; O2SAT 99
[2023-09-25 23:44] LABS: Troponin I < 0.012 ng/mL (0.000-0.034)
== END 2023-09-26 00:10 | disposition home or self-care (01) ==
PROVIDERS: Emergency Provider Emergency Medicine
DX: R07.89 Other chest pain (principal); R00.1 Bradycardia, unspecified
CPT/HCPCS: 36415; 71046; 71275; 74177; 80053; 81025; 83690; 84484; 85025; 85610; 85730; 93005; 99284; A9270; Q9967

== ENCOUNTER 2023-12-15 09:45 | Emergency (ER) | payer OTHER, MEDICAID, SELFPAY ==
[2023-12-15] VITALS (20 sets, daily range): BP systolic 105–130; BP diastolic 67–82; PULSE 53–76; RESP 11–22; TEMP 36.3–36.8; O2SAT 97–100
--- NOTE | ~2023-12-15 | CT_ITS ---
EXAMINATION: CT abdomen pelvis wo con DATE: 12/15/2023 10:48 INDICATION: Abdominal pain TECHNIQUE: Computed tomography (CT) of the abdomen and pelvis was performed without intravenous contr ast. Automated exposure control and iterative reconstruction technique were employed. The dose-length product was 269.40 mGy-cm. COMPARISON: 09/25/2023 FINDINGS: Lung bases are clear. Heart size is normal. No pericardial or pleural effusion. Liver, gallbladder, s pleen, pancreas and bilateral adrenal glands and kidneys are normal. Intestinal malrotation with the small bowel in the right abdomen and the colon in the left abdomen and pelvis. No bowel obstruction. 2.6 cm right adnexal cyst/follicle. Decompressed bladder, anteverted uterus and left adnexa are unrem arkable. No free intraperitoneal gas or fluid. No pathologically enlarged abdominal or pelvic lymphad enopathy. Mild thoracolumbar dextrocurvature. IMPRESSION: 1. 2.6 cm right adnexal cyst/follicle. No acute intra-abdominal/pelvic process. 2. Bowel malrotation. No obstruction. Reviewed, dictated and finalized at location B.
--- NOTE | 2023-12-15 10:11 | PC.NURSE ---
RN spoke with Dr. Santana concerning pt c/o & triage assessment. Orders received
[2023-12-15 10:40] LABS: Basophils Percent Auto 0.6 % (0.2-1.2); Eosinophils Percent Auto 0.6 % (0-4.4); Hematocrit 47.4 % (37.0-47.0); Hemoglobin 16.2 g/dL (12.0-15.0); Immature Granulocyte Absolute 0.01 K/mm3 (0.00-0.031); Immature Granulocyte Percent A 0.2 % (0-0.5); Lymphocytes Absolute Auto 1.07 K/mm3 (0.9-3.2); Lymphocytes Percent Auto 20.9 % (18.3-44.2); Mean Corpuscular HGB Conc 34.2 g/dl (32-36); Mean Corpuscular Hemoglobin 29.6 pg (26-34); Mean Corpuscular Volume 86.5 fl (80-100); Mean Platelet Volume 10.7 fl (7.4-10.4); Monocytes Absolute Auto 0.4 K/mm3 (0.1-0.6); Monocytes Percent Auto 7.6 % (2.6-8.5); Neutrophils Absolute Auto 3.6 K/mm3 (1.3-6.7); Neutrophils Percent Auto 70.1 % (45.5-73.1); Platelet Count Result 170 k/mm3 (150-375); Red Blood Count 5.48 M/mm3 (4.2-5.4); Red Cell Distribution Width 12.2 % (11.5-14.5); White Blood Count 5.1 K/mm3 (4.5-10.0)
[2023-12-15 10:42] LABS: BEDSIDEPREGUCG Negative (Negative)
[2023-12-15 10:51] LABS: Alanine Aminotransferase 19 U/L (6-35); Alkaline Phosphatase 59 U/L (38-126); Anion Gap 13 mmol/L (4-12); Aspartate Amino Transferase 26 U/L (14-36); Bilirubin,Total 1.4 mg/dL (0.2-1.3); Blood Urea Nitrogen 10 mg/dL (7-17); Calcium 9.4 mg/dL (8.4-10.2); Carbon Dioxide 25 mmol/L (22-30); Chloride 101 mmol/L (98-107); Estimated CRCL calculation 27 ml/min; Estimated Glomerular Filt Rate > 60; Glucose 94 mg/dL (65-110); Lipase 121 U/L (23-300); Potassium 3.9 mmol/L (3.4-5.0); Sodium 139 mmol/L (137-145)
[2023-12-15 11:01] LABS: Add Urine Microscopic? YES; Appearance Urine Clear (Clear); Bacteria Urine Rare /hpf; Bilirubin Urine Negative (Negative); Blood Urine Negative (Negative); Color Urine Yellow (Yellow); Glucose Urine UA Negative (Negative); Ketones Urine 1+ mg/dL (Negative); Leukocyte Esterase Ur 1+ LEU/UL (Negative); Need Manual Microscopic Reviewed; Nitrate Urine Negative (Negative); Non Pathogenic Casts 0-2; Protein Urine Negative (Negative); RBC Urine 0-2 /hpf (0-2); Squamous Epithelial Cell Urine Moderate /hpf (Few); WBC Urine 0-5 /hpf (0-3); pH Urine 6.5 (5.0-9.0)
--- NOTE | 2023-12-15 12:12 | ED.ABDPAIN ---
HPI - Abdominal Pain General Chief Complaint: Abdominal Pain Stated Complaint: abd pain, hx of blockage Time Seen by Provider: 12/15/23 11:24 History of Present Illness HPI narrative: 23-year-old female presents emergency department for evaluation for constipation. Patient reports she had a prior history of a bowel obstruction. Patient reports he has had constipation over the last few days but has been taking MiraLax. Patient states she is still passing stool but nothing significant. Patient reports she has had decreased p.o. intake because she is afraid that she had a bowel obstruction. Patient did complain of some right lower quadrant abdominal pain a few days ago but denies any current abdominal pain now. Related Data Allergies Allergy/AdvReac Type Severity Reaction Status Date / Time No Known Allergies Allergy Verified 03/06/23 10:17 Review of Systems Review of Systems: All systems reviewed & are unremarkable except as noted in HPI and below PMFSH Past Medical History Medical History Colitis 2017 Surgical History Surgical History History of laparotomy Exploratory laparotomy as 1 day old due to intestinal blockage with incidental appendectomy due to abnormal anatomy of appendix History of surgery of head Hx Sagittal synostosis as an infant Hx of appendectomy 1 day old Family History Family History Mother Hypertension Father Malignant neoplasm of prostate Social History Social History Smoking status: Never smoker Alcohol intake: current Alcohol use details: Occasional, social use Substance use: never Substance use type: does not use Lack of Transportation: No Lack of Food: Never True Current Housing: I Have Housing Concerned About Future Housing: No Difficulty Paying Gas/Electric Bills: No Difficulty Paying for Meds: No Currently Unemployed: No Education: Bachelor's Degree Difficulty w/ Childcare or Family Care: No Spiritual care concerns: No Exam Narrative: APPEARANCE: Well appearing, no pain, no distress, well-nourished. HEAD: normocephalic, atraumatic. EYES: PERRLA/EOMI, conjunctivae clear. NOSE: Normal no drainage EARS:TMS clear with good light reflex. THROAT: Pharynx clear, no exudate. NECK: Supple. No adenopathy, no masses. RESPIRATORY: Airway patent, respirations nonlabored. Clear to auscultation bilaterally, no rales, rhonchi, wheezing. CARDIOVASCULAR: Regular rate and rhythm without murmurs rubs or gallops. ABDOMINAL: Soft, nontender, nondistended, normal bowel sounds MUSCULOSKELETAL: Moves all extremities. Strength/ROM intact, No edema, No calf tenderness. NEURO: Alert. Cranial nerves II through XII intact. Grossly intact SKIN: Warm, dry. Normal Color Course Course Emergency Course: Patient felt improved with treatment was discharged to home. Vital Signs Vital signs: Vital Signs Temperature 98.2 F 12/15/23 10:04 Pulse Rate 61 12/15/23 10:04 Respiratory Rate 16 12/15/23 10:04 Blood Pressure 121/73 12/15/23 10:04 Pulse Oximetry 100 12/15/23 10:04 Oxygen Delivery Room Air 12/15/23 10:04 Temperature 97.4 F L 12/15/23 11:03 Pulse Rate 56 L 12/15/23 13:32 Respiratory Rate 13 12/15/23 13:32 Blood Pressure 105/78 12/15/23 13:16 Pulse Oximetry 99 12/15/23 13:32 Oxygen Delivery Room Air 12/15/23 10:04 MDM - Abdominal Pain MDM Narrative Medical decision making narrative: 23-year-old female presenting to the ED for evaluation of constipation decreased p.o. intake. Patient is afebrile with no leukocytosis and a stable hemoglobin of 16.2. Patient has no acute abnormalities on her CMP. Lipase was negative. UA was negative for acute infection. CT scan showed n
[2023-12-15] MEDS: PANTOPRAZOLE SODIUM IV 40 MG VIAL IV PUSH (12:21)
[2023-12-15] MEDS: BELLADONNA ALK/PHENOB ELIX 10 ML, MAG HYDROX/ALUMINUM HYD/SIMETH 30 ML, LIDOCAINE HCL 2... PO (12:22)
== END 2023-12-15 13:47 | disposition home or self-care (01) ==
PROVIDERS: Emergency Provider Emergency Medicine
DX: K59.00 Constipation, unspecified (principal); R10.13 Epigastric pain; Q43.3 Congenital malformations of intestinal fixation; N94.89 Other specified conditions associated with female genital organs and menstrual cycle
CPT/HCPCS: 36415; 74176; 80053; 81001; 81025; 83690; 85025; 87086; 96374; 99284; A9270; J2470